=== PATIENT | female | born 1985 | race Caucasian/White ===

== ENCOUNTER 2018-07-02 12:00 | Inpatient (IN) | payer OTHER ==
[~2018-07-02] VITALS: Ht 165.1 cm; Wt 118.8 kg
[~2018-07-02 12:00] MED LIST: NAPROXEN SODIU550 MG PO
[2018-07-04] MEDS ORDERED: PEPCID AC20 MG (09:23)
[2018-07-18] MEDS ORDERED: PRENATAL TABLE1 EAC1 PO (10:34)
[2018-07-18] MEDS ORDERED: IRON325 MG PO (10:35)
[2018-07-20] MEDS ORDERED: PRENATAL TABLE1 EAC1 PO (08:06)
[2018-07-20] MEDS ORDERED: PEPCID AC20 MG PO (08:07)
== END 2018-07-20 12:25 | disposition home or self-care (01) | DRG 807 ==
LOC: LDR 07-18 06:27 → SURG-SUITE 07-18 06:27 → OB/GYN 07-27 12:00
PROVIDERS: ADMIT Obstetrics & Gynecology
PROC: 10E0XZZ Delivery of Products of Conception, External Approach (ICD-10-PCS; principal; 2018-07-18)
PROC: 0HQ9XZZ Repair Perineum Skin, External Approach (ICD-10-PCS; 2018-07-18)
PROC: 10907ZC Drainage of Amniotic Fluid, Therapeutic from Products of Conception, Via Natural or Artificial Opening (ICD-10-PCS; 2018-07-18)
PROC: 3E033VJ Introduction of Other Hormone into Peripheral Vein, Percutaneous Approach (ICD-10-PCS; 2018-07-18)
PROC: 4A1HXCZ Monitoring of Products of Conception, Cardiac Rate, External Approach (ICD-10-PCS; 2018-07-18)
DX: O70.0 First degree perineal laceration during delivery (principal); Z37.0 Single live birth; Z3A.38 38 weeks gestation of pregnancy

== ENCOUNTER → 2021-07-01 | Emergency (ER) | payer OTHER ==
[~2021-07-01] VITALS: Ht 165.1 cm; Wt 115.7 kg
[~2021-07-01] MED LIST changes: +IRON325 MG PO; +PEPCID AC20 MG; +PEPCID AC20 MG PO; +PRENATAL TABLE1 EAC1 PO
== END | disposition home or self-care (01) ==
LOC: ER 17:26
DX: S61.412A Laceration without foreign body of left hand, initial encounter (principal); W26.0XXA Contact with knife, initial encounter; Y93.9 Activity, unspecified; Y92.9 Unspecified place or not applicable; Y99.9 Unspecified external cause status

== ENCOUNTER 2021-07-08 08:35 | Emergency (ER) | payer OTHER ==
[~2021-07-08] VITALS: Ht 165.1 cm; Wt 114.3 kg
== END 2021-07-08 09:40 | disposition home or self-care (01) ==
LOC: ER 08:35
DX: Z48.02 Encounter for removal of sutures (principal)